=== PATIENT | female | born 1950 | race Caucasian/White ===

== ENCOUNTER → 2019-04-26 | Day surgery (SDC) | payer MEDICARE, OTHER ==
[2019-04-23 13:46] LABS: BASOPHILS % 0.4 % (0.0-1.0); EOSINOPHILS # (AUTO) 0.1 (0.0-0.4); EOSINOPHILS % 0.9 % (0.0-6.0); HEMATOCRIT 39.5 % (34.2-44.1); HEMOGLOBIN 12.9 g/dL (12.0-16.0); LYMPHOCYTES % 22.1 % (18.0-39.1); MEAN CORPUSCULAR HEMOGLOBIN 32.3 pg (28-32); MEAN CORPUSCULAR HGB CONC 32.7 g/dL (31-35); MEAN CORPUSCULAR VOLUME 98.8 fL (81-99); MONOCYTES # (AUTO) 0.9 (0.2-0.8); MONOCYTES % 10.1 % (4.4-11.3); NEUTROPHILS # (AUTO) 6.1 (2.1-6.9); NEUTROPHILS % 66.1 % (38.7-80.0); PLATELET COUNT 259 x10e3/uL (140-360); RED CELL DISTRIBUTION WIDTH 13.1 % (11.7-14.4)
[~2019-04-26] MED LIST: 5-HTP100 MG PO; ASPIR 8181 MG PO; Adrenal Support PO; BLACK CURRANT OIL; CALCIUM LACTATE PO; COD LIVER; COD LIVER OIL; FENTANYL CITRATE/PF 100MCG/2 ML INJ ONE; FOLIC ACID; Fish Oil PO; GLUCAGON FOR INJ 1 MG VIAL ONE; HYDRA; HYOSCYAMINE 0.125 MG TAB ONE; K2 PLUS D3 TAB1 EACH PO; LEVOTHYROXINE100 MC1 PO; LEVOTHYROXINE88 MCG PO; LIOTHYRONINE SO5 MCG PO; LIPOIC ACID1 GM PO; MELATONIN3 M1 PO; METHYL PROTECT PO; METOPROLOL SUCC25 MG PO; MIDAZOLAM HCL 2 MG/2 ML VIAL ONE; MULTIVITAMIN; Magnesium Glycinate PO; OMEGA 3 FISH O1 EACH PO; PROPOFOL IV EMULSION 10 MG/ML 50 ML VIAL ONE; SYNTHROID75 MCG PO; VITAMIN B12; VITAMIN D; [UNRECOGNIZED DRUG - OTHER]; [UNRECOGNIZED DRUG - OTHER]; [UNRECOGNIZED DRUG - OTHER] PO; [UNRECOGNIZED DRUG - OTHER] PO; [UNRECOGNIZED DRUG - OTHER] PO; [UNRECOGNIZED DRUG - OTHER] PO
[2019-04-26 10:05] VITALS: BP 139/85
--- NOTE | 2019-04-26 16:00 | Operative Report ---
DATE OF PROCEDURE: 04/26/2019 SURGEON: Tashi Fletcher MD PROCEDURES: EGD with biopsies and colonoscopy with polypectomy. REFERRING PHYSICIAN: Roger Thorpe MD INDICATIONS FOR EGD: Dyspepsia. INDICATIONS FOR COLONOSCOPY: Surveillance colonoscopy and personal history of colon polyps. MEDICATIONS: The patient was done under MAC. Please see anesthesiologist's note. PROCEDURE IN DETAIL: With the patient in left lateral decubitus position, a flexible fiberoptic Olympus gastroscope was introduced into the esophagus under direct visualization without any difficulty. There was some patchy erythema noted in distal esophagus. The scope was then advanced with ease into the stomach. Mucosa overlying the antrum and the body revealed some patchy intense erythema and moderate edema and biopsies were obtained and sent to stain for H. pylori. The pylorus was of normal contour and shape, it was intubated with ease and the scope was advanced all the way to the second portion of the duodenum. The scope was then withdrawn slowly. Mucosa overlying the proximal second portion and duodenal bulb appeared to be within normal limits. The scope was then withdrawn back into the stomach and retroflexed. Mucosa overlying the fundus and the cardia appeared to be within normal limits. The scope was then straightened out and it was subsequently withdrawn. The patient tolerated the procedure well. IMPRESSION: 1. Distal esophagitis. 2. Gastritis, biopsies sent to stain for H. pylori. PLAN: Follow up histology. Initiate Protonix 40 mg one p.o. q.a.m. a.c. PROCEDURE IN DETAIL: The patient was then turned around after adequate lubrication of the anal canal. A flexible fiberoptic Olympus colonoscope was inserted into the rectum with ease and advanced all the way to the cecum. The scattered diverticular disease was noted pretty much throughout. The scope was then withdrawn slowly and mucosa overlying the cecum appeared to be within normal limits. One minute polyp was removed per cold biopsy forceps from the ascending colon. The transverse descending sigmoid other than for diverticular disease appeared to be within normal limits. The scope was then retroflexed into the distal rectum and moderate-sized internal hemorrhoids were noted, none of which were actively bleeding. The scope was then straightened out. It was subsequently withdrawn. The patient tolerated the procedure well. IMPRESSION: 1. Pandiverticulosis. 2. Ascending colon polyp removed per cold biopsy forceps. 3. Internal hemorrhoids none actively bleeding. PLAN: Followup histology. Initiate high-fiber, low-fat diet. Initiate high-fiber supplement. The patient might benefit from a followup colonoscopy in 5 years. MD BANDAR Pack/SUZY /[id number] cc: Roger Thorpe MD
== END | disposition home or self-care (01) ==
LOC: OR 06:14
PROVIDERS: ATTEND Internal Medicine Gastroenterology
DX: K29.50 Unspecified chronic gastritis without bleeding (principal); D12.2 Benign neoplasm of ascending colon; K31.89 Other diseases of stomach and duodenum; K20.9 Esophagitis, unspecified; K57.30 Diverticulosis of large intestine without perforation or abscess without bleeding; K64.8 Other hemorrhoids; K28.9 Gastrojejunal ulcer, unspecified as acute or chronic, without hemorrhage or perforation; D64.9 Anemia, unspecified; M06.9 Rheumatoid arthritis, unspecified; E03.9 Hypothyroidism, unspecified; M35.00 Sjogren syndrome, unspecified; Z01.810 Encounter for preprocedural cardiovascular examination; Z01.812 Encounter for preprocedural laboratory examination; Z79.82 Long term (current) use of aspirin
CPT/HCPCS: 36415; 43239; 45380; 85025; 88305; 88312; 93005; J1610; J2250; J2704; J3010; 45378; 45384